=== PATIENT | female | born 1980 | race African-American/Black ===

== ENCOUNTER 2021-04-24 18:22 | Emergency (ER) | payer OTHER ==
[2021-04-24 18:32] VITALS: TEMP 98.5; BMI 30.7
[2021-04-24] MEDS ORDERED: ONDANSETRON 4 MG/2 ML VIAL IVPUSH ONE (18:42)
[2021-04-24] MEDS ORDERED: SODIUM CHLORIDE 1,000 ML IV STA (18:42)
[2021-04-24] MEDS ORDERED: ONDANSETRON 4 MG/2 ML VIAL ONE (19:03)
[2021-04-24 19:51] LABS: BASO % 0.3 % (0-2.0); EOS % 1.5 % (0-4.5); HEMATOCRIT 33.7 % (32.4-45.2); HEMOGLOBIN 10.7 GM/dL (10.7-15.3); LYMPH % 32.5 % (8-40); MCHC 31.9 g/dl (32.0-36.0); MEAN CELL VOLUME 75.2 fl (80-96); MEAN PLT VOLUME 9.4 fl (7.5-11.1); MONO % 6.5 % (3.8-10.2); NEUT % 59.2 % (42.8-82.8); PLATELET COUNT 373 K/MM3 (134-434); RBC 4.48 M/mm3 (3.60-5.2); RDW 34.7 % (11.6-15.6); WHITE BLOOD COUNT 7.3 K/mm3 (4.0-10.0)
[2021-04-24 19:54] LABS: EPI CELLS 8 /uL (0-25.1); HCG,QUALITATIVE URINE Negative; HYALINE CASTS 1 /uL (0-3.1); PH,URINE 5.5 (5.0-8.0); URINE APPEARANCE CLEAR; URINE BACTERIA 102 /uL (0-1359); URINE BILIRUBIN NEGATIVE (NEGATIVE); URINE COLOR YELLOW; URINE GLUCOSE (UA) NEGATIVE (NEGATIVE); URINE KETONE NEGATIVE (NEGATIVE); URINE LEUK ESTERASE NEGATIVE (NEGATIVE); URINE NITRITE NEGATIVE (NEGATIVE); URINE PROTEIN NEGATIVE (NEGATIVE); URINE RBC 53 /uL (0-23.9); URINE UROBILINOGEN 0.2 mg/dL (0.2-1.0); URINE WBC 7 /uL (0-25.8)
[2021-04-24] MEDS ORDERED: ACETAMINOPHEN 1000 MG/100 ML VIAL (NON FORMULARY) IVPB ONE (20:03)
[2021-04-24] MEDS ORDERED: morphine CARPU-JECT 2 MG/1 ML DISP.SYRIN IVPUSH ONE (20:03)
[2021-04-24 20:05] LABS: ALBUMIN 3.6 g/dl (3.4-5.0); BLOOD UREA NITROGEN 9.7 mg/dL (7-18)
[2021-04-24 20:08] LABS: CREATININE 0.6 mg/dL (0.55-1.3)
[2021-04-24 20:10] LABS: BILIRUBIN,TOTAL 0.7 mg/dL (0.2-1); TOT PROT 7.3 g/dl (6.4-8.2)
[2021-04-24] MEDS ORDERED: ACETAMINOPHEN INJECTION 100 ML IVPB ONE (20:11)
[2021-04-24] MEDS ORDERED: MORPHINE SULFATE 2 MG/ML VIAL ONE (20:41)
[2021-04-24] MEDS ORDERED: KETOROLAC TROMETHAMINE 30 MG/1 ML VIAL IVPUSH ONE (22:55)
[2021-04-24] MEDS ORDERED: KETOROLAC TROMETHAMINE 30 MG/1 ML VIAL ONE (23:05)
[2021-04-24 23:13] VITALS: BP 104/50; PULSE 66
== END 2021-04-25 00:29 | disposition home or self-care (01) ==
LOC: JER 18:22
PROC: 3E0333Z Introduction of Anti-inflammatory into Peripheral Vein, Percutaneous Approach (ICD-10-PCS; principal; 2021-04-24)
PROC: 3E0333Z Introduction of Anti-inflammatory into Peripheral Vein, Percutaneous Approach (ICD-10-PCS; 2021-04-24)
PROC: 3E033NZ Introduction of Analgesics, Hypnotics, Sedatives into Peripheral Vein, Percutaneous Approach (ICD-10-PCS; 2021-04-24)
PROC: 3E033GC Introduction of Other Therapeutic Substance into Peripheral Vein, Percutaneous Approach (ICD-10-PCS; 2021-04-24)
PROC: 3E0337Z Introduction of Electrolytic and Water Balance Substance into Peripheral Vein, Percutaneous Approach (ICD-10-PCS; 2021-04-24)
DX: R10.2 Pelvic and perineal pain (principal); R10.31 Right lower quadrant pain
CPT/HCPCS: 36415; 74177-TC; 76830-TC; 80053; 81003; 84703; 85025; 87086; 99285-25; J0131; Q9967

== ENCOUNTER 2021-08-13 04:57 | Inpatient (IN) | payer OTHER ==
[2021-08-09 11:32] VITALS: BMI 30.5
[2021-08-13] MEDS ORDERED: BUPIVACAINE HCL/PF 0.5% (5MG/ML) 10 ML VIAL ONE (08:31)
[2021-08-13] MEDS ORDERED: BUPIVACAINE LIPOSOME/PF (EXPAREL) 266 MG/20 ML VIAL ONE (08:31)
[2021-08-13] MEDS ORDERED: MIDAZOLAM HCL 2 MG/2 ML SINGLE DOSE VIAL ONE ×4 (08:32→16:03)
[2021-08-13] MEDS ORDERED: PROPOFOL 20 ML ONE (08:50)
[2021-08-13] MEDS ORDERED: ROCURONIUM BROMIDE 50 MG/5 ML SYRINGE ONE ×2 (08:51→10:23)
[2021-08-13] MEDS ORDERED: VASOPRESSIN 20 UNITS/ML VIAL IV ONE (09:08)
[2021-08-13] MEDS ORDERED: ceFAZolin 2 GRAM PREMIX BAG IVPB ONE (09:45)
[2021-08-13] MEDS ORDERED: ONDANSETRON 4 MG/2 ML VIAL IVPUSH PRN (09:52)
[2021-08-13] MEDS ORDERED: GLYCOPYRROLATE 0.2 MG/1 ML VIAL ONE (11:12)
[2021-08-13] MEDS ORDERED: NEOSTIGMINE METHYLSULFATE 0.5 MG/ML - 10 ML MDV ONE (11:12)
[2021-08-13] MEDS ORDERED: BENZOIN/ALOE VERA/STORAX/TOLU 58 ML BOTTLE ONE (11:27)
[2021-08-13] MEDS ORDERED: MEPERIDINE HCL 25 MG/ML VIAL ONE (12:19)
[2021-08-13] MEDS ORDERED: HYDROmorphone *PCA* 10MG/50ML DISP.SYRIN ONE (12:31)
[2021-08-13] MEDS: LACTATED RINGERS SOLUTION 1,000 ML IV SCH ×2 (12:40→18:56)
[2021-08-13] MEDS: HYDROmorphone *PCA* 10MG/50ML DISP.SYRIN PCA SCH (12:40)
[2021-08-13] MEDS ORDERED: oxyCODONE HCL 5 MG TABLET PO PRN ×2 (14:50)
[2021-08-13] MEDS ORDERED: ACETAMINOPHEN 1000 MG/100 ML VIAL IVPB ONE (14:50)
[2021-08-13] MEDS ORDERED: MEPERIDINE HCL 25 MG/ML VIAL IVPUSH ONE (14:55)
[2021-08-13] MEDS ORDERED: ACETAMINOPHEN INJECTION 100 ML IVPB ONE (15:09)
[2021-08-13] MEDS: ACETAMINOPHEN 500 MG TABLET (FP) PO SCH (21:44)
[2021-08-13] MEDS ORDERED: oxyCODONE HCL 10 MG SUSTAINED ACTING TABLET PO SCH (22:00)
[2021-08-14] MEDS: ACETAMINOPHEN 500 MG TABLET (FP) PO SCH ×4 (03:19→20:41)
[2021-08-14 07:44] LABS: BASO % 0.3 % (0-2.0); EOS % 0.6 % (0-4.5); HEMATOCRIT 30.1 % (32.4-45.2); HEMOGLOBIN 10.4 GM/dL (10.7-15.3); LYMPH % 24.3 % (8-40); MCH 28.8 pg (25.7-33.7); MCHC 34.6 g/dl (32.0-36.0); MEAN CELL VOLUME 83.3 fl (80-96); MONO % 8.2 % (3.8-10.2); NEUT % 66.6 % (42.8-82.8); PLATELET COUNT 303 10^3/uL (134-434); RBC 3.61 M/mm3 (3.60-5.2); RDW 15.9 % (11.6-15.6); WHITE BLOOD COUNT 10.4 K/mm3 (4.0-10.0)
[2021-08-14 08:01] LABS: BLOOD UREA NITROGEN 9.5 mg/dL (7-18); CALCIUM 8.1 mg/dL (8.5-10.1)
[2021-08-14 08:05] LABS: CREATININE 0.7 mg/dL (0.55-1.3)
[2021-08-14 08:06] LABS: BILIRUBIN,TOTAL 0.5 mg/dL (0.2-1); TOT PROT 5.5 g/dl (6.4-8.2)
[2021-08-14 08:31] LABS: ALBUMIN 2.4 g/dl (3.4-5.0)
[2021-08-14] MEDS: ENOXAPARIN NA (PORCINE) 40 MG/0.4 ML DISP.SYRIN SQ SCH (10:09)
[2021-08-14] MEDS ORDERED: PCA PUMP KEY 1 EACH EACH ONE (14:12)
[2021-08-14] MEDS: IBUPROFEN 600 MG TABLET (FP) PO PRN (14:13)
[2021-08-14] MEDS ORDERED: DOCUSATE SODIUM 100 MG CAPSULE (FP) PO PRN (20:16)
[2021-08-14] MEDS ORDERED: oxyCODONE HCL 5 MG TABLET PO PRN (20:16)
[2021-08-14] MEDS ORDERED: FAMOTIDINE 20 MG TABLET PO PRN (20:17)
[2021-08-15] MEDS: ACETAMINOPHEN 500 MG TABLET (FP) PO SCH ×2 (02:42→08:19)
[2021-08-15] MEDS: IBUPROFEN 600 MG TABLET (FP) PO PRN (08:20)
[2021-08-15] MEDS ORDERED: BISACODYL 5 MG TABLET.DR (FP) PO ONE (10:00)
[2021-08-15] MEDS: ENOXAPARIN NA (PORCINE) 40 MG/0.4 ML DISP.SYRIN SQ SCH (10:22)
[2021-08-15] MEDS: HYDROmorphone *PCA* 10MG/50ML DISP.SYRIN PCA SCH (11:10)
[2021-08-15 11:41] VITALS: BP 99/65; PULSE 84; TEMP 98
== END 2021-08-15 11:50 | disposition home or self-care (01) | DRG 743 ==
LOC: J2C 04:57 → J3W 15:51
PROVIDERS: ADMIT Obstetrics & Gynecology; ATTEND Obstetrics & Gynecology
PROC: 0UB90ZZ Excision of Uterus, Open Approach (ICD-10-PCS; principal; 2021-08-13 09:00)
DX: N92.0 Excessive and frequent menstruation with regular cycle (principal); D25.9 Leiomyoma of uterus, unspecified; D64.9 Anemia, unspecified; N94.6 Dysmenorrhea, unspecified; K21.9 Gastro-esophageal reflux disease without esophagitis
CPT/HCPCS: 36415; 80053; 81025; 85025; 86850; 86900; 86901; 86922; 88304-TC; 88305-TC; 94010; 94760; J0131